=== PATIENT | female | born 1990 | race Two or more races ===

== ENCOUNTER 2020-04-28 05:59 | Inpatient (IN) | payer OTHER ==
[~2020-04-28] VITALS: Ht 154.9 cm; Wt 77.1 kg
[2020-04-28] MEDS ORDERED: PRENATAL CAPLE1 EAC1 PO (06:41)
[2020-04-28] MEDS ORDERED: ZYRTEC10 M3 PO (06:42)
== END 2020-04-30 11:47 | disposition home or self-care (01) | DRG 807 ==
LOC: LDR 05:59 → OB/GYN 09:28
PROVIDERS: ADMIT Specialist; ATTEND Specialist
PROC: 10E0XZZ Delivery of Products of Conception, External Approach (ICD-10-PCS; principal; 2020-04-28)
PROC: 0HQ9XZZ Repair Perineum Skin, External Approach (ICD-10-PCS; 2020-04-28)
PROC: 4A1HXFZ Monitoring of Products of Conception, Cardiac Rhythm, External Approach (ICD-10-PCS; 2020-04-28)
DX: O70.0 First degree perineal laceration during delivery (principal); Z37.0 Single live birth; O24.420 Gestational diabetes mellitus in childbirth, diet controlled; Z3A.38 38 weeks gestation of pregnancy; Z20.828 Contact with and (suspected) exposure to other viral communicable diseases

== ENCOUNTER 2020-06-04 06:20 | Day surgery (SDC) | payer OTHER ==
[~2020-06-04 06:20] MED LIST: ALLEGRA ALLERGY60 MG PO; PRENATAL CAPLE1 EAC1 PO; SYMBICORT 16010.2 GM IH; ZYRTEC10 M3 PO
[2020-06-04] MEDS ORDERED: PERCOCET 5-3251 EACH PO (15:01)
[2020-06-04] MEDS ORDERED: SURFAK240 M1 PO (15:01)
== END 2020-06-04 17:05 | disposition home or self-care (01) ==
LOC: CIR.AMB 06:20
PROVIDERS: ATTEND Specialist
DX: Z30.2 Encounter for sterilization (principal); Z20.828 Contact with and (suspected) exposure to other viral communicable diseases; N70.11 Chronic salpingitis